=== PATIENT | male | born 1960 | race Caucasian/White ===

== ENCOUNTER → 2021-01-06 09:50 | Outpatient (BNVA) | payer BC, SELFPAY | PROVIDERS: Family Provider Family Medicine; PCP Family Medicine; Visit Provider Family Medicine | DX: M70.10 Bursitis, unspecified hand (principal); G56.20 Lesion of ulnar nerve, unspecified upper limb | CPT/HCPCS: 73110 ==

== ENCOUNTER → 2021-01-07 10:16 | Outpatient (BNVA) | payer BC, SELFPAY | PROVIDERS: Family Provider Family Medicine; PCP Family Medicine; Referring Provider Family Medicine; Visit Provider Specialist | DX: G56.23 Lesion of ulnar nerve, bilateral upper limbs (principal); M70.10 Bursitis, unspecified hand; Z87.891 Personal history of nicotine dependence | CPT/HCPCS: 95910 ==

== ENCOUNTER → 2021-04-01 11:16 | Outpatient (BNVA) | payer BC, SELFPAY | PROVIDERS: Family Provider Family Medicine; PCP Family Medicine; Visit Provider Family Medicine | DX: R52 Pain, unspecified (principal) | CPT/HCPCS: 87400; 87635 ==

== ENCOUNTER → 2021-11-08 09:52 | Outpatient (BNVA) | payer BC, SELFPAY | PROVIDERS: Family Provider Family Medicine; PCP Family Medicine; Visit Provider Orthopaedic Surgery | DX: G56.02 Carpal tunnel syndrome, left upper limb (principal); Z01.818 Encounter for other preprocedural examination | CPT/HCPCS: 71046; 80048; 85025 ==

== ENCOUNTER → 2021-12-29 08:51 | Outpatient (BNVA) | payer BC, SELFPAY | PROVIDERS: Family Provider Family Medicine; PCP Family Medicine; Visit Provider Orthopaedic Surgery | DX: G56.02 Carpal tunnel syndrome, left upper limb (principal) | CPT/HCPCS: 80048; 85025 ==

== ENCOUNTER 2022-03-22 06:00 | Outpatient (RCR) | payer BC, SELFPAY | END 2022-04-16 23:59 | disposition home or self-care (01) | LOC: GOT 06:00 | PROVIDERS: PCP Family Medicine; Visit Provider Orthopaedic Surgery | DX: G56.21 Lesion of ulnar nerve, right upper limb (principal); Z51.89 Encounter for other specified aftercare; Z98.890 Other specified postprocedural states | CPT/HCPCS: 97018; 97110; 97140; 97166 ==

== ENCOUNTER 2022-04-17 06:00 | Outpatient (RCR) | payer BC, SELFPAY | END 2022-05-17 23:59 | disposition home or self-care (01) | LOC: GOT 06:00 | PROVIDERS: PCP Family Medicine; Visit Provider Orthopaedic Surgery | DX: Z98.890 Other specified postprocedural states (principal); Z48.89 Encounter for other specified surgical aftercare | CPT/HCPCS: 97110; 97140 ==